=== PATIENT | female | born 1985 | race Caucasian/White ===

== ENCOUNTER 2017-09-24 09:39 | Emergency (ER) | payer OTHER ==
[~2017-09-24] VITALS: Ht 172.7 cm; Wt 77.0 kg
[~2017-09-24 09:39] MED LIST: DOXY100C2 PO; FERR325T18 PO; FLUT1AER INH; LEVA0.63 NEB; METR250T PO; MONT10TA6 PO; OMEP-110 PO; SUCR1ORA5 PO; ZOLP12.54 PO
[2017-09-24] MEDS ORDERED: LEVA15HF4 INH (10:00)
[2017-09-24] MEDS ORDERED: SODIUM CHLORIDE 0.9% 1,000ML IVBOLUS ONE (10:30)
[2017-09-24] MEDS ORDERED: SODIUM CHLORIDE FLUSH 10ML SYR IVF ONE (10:30)
[2017-09-24] MEDS ORDERED: ONDANSETRON 2MG/ML, 2ML ONE (10:44)
[2017-09-24] MEDS ORDERED: FAMOTIDINE 20 MG/2 ML ONE (10:44)
[2017-09-24] MEDS ORDERED: MORPHINE SULFATE 4 MG/ML, 1ML ONE (10:44)
[2017-09-24] MEDS ORDERED: MORPHINE SULFATE 4 MG/ML, 1ML IVPush PRN (11:00)
[2017-09-24] MEDS ORDERED: FAMOTIDINE 20 MG/2 ML IVP ONE (11:00)
[2017-09-24] MEDS ORDERED: ONDANSETRON 2MG/ML, 2ML IVPush ONE (11:00)
[2017-09-24 11:02] LABS: ALANINE AMINOTRANSFERASE 18 U/L (12-78); ALBUMIN 3.6 g/dL (3.4-5.0); ANION GAP 9 mmol/L (5-15); CALCIUM 8.5 mg/dL (8.5-10.1); CHLORIDE 113 mmol/L (98-107); CREATININE 0.67 mg/dL (0.55-1.02)
[2017-09-24 11:04] LABS: BASOPHILS # (AUTO) 0.04 x10^3/uL (0-0.1); BASOPHILS % (AUTO) 1 % (0-1); EOSINOPHILS # (AUTO) 0.13 x10^3/uL (0-0.4); EOSINOPHILS % (AUTO) 2 % (1-7); LYMPHOCYTES # (AUTO) 2.12 x10^3/uL (1-3.4); LYMPHOCYTES % (AUTO) 34 % (22-44); MD SCAN; MEAN CORPUSCULAR HEMOGLOBIN 26.1 pg (27.0-34.8); MEAN CORPUSCULAR HGB CONC 32.9 g/dL (32.4-35.8); MEAN CORPUSCULAR VOLUME 79.2 fL (80-100); MEAN PLATELET VOLUME 11.2 fL (7.4-10.4); MONOCYTES # (AUTO) 0.21 x10^3/uL (0.2-0.8); MONOCYTES % (AUTO) 3 % (2-9); NEUTROPHILS # (AUTO) 3.69 x10^3/uL (1.8-6.8); NEUTROPHILS % (AUTO) 60 % (42-75); PLATELET COUNT 268 x10^3/uL (130-400); RED BLOOD COUNT 4.72 x10^6/uL (3.82-5.3); RED CELL DISTRIBUTION WIDTH 22.3 % (9.6-15.2)
[2017-09-24 11:06] LABS: ALKALINE PHOSPHATASE 46 U/L (45-117); BILIRUBIN,TOTAL 0.5 mg/dL (0.2-1.0); TOTAL PROTEIN 7.3 g/dL (6.4-8.2)
[2017-09-24] MEDS ORDERED: MAALOX/HYOSCYAMINE/LIDOCAINE 45 ML BTL ONE (11:15)
[2017-09-24] MEDS ORDERED: MAALOX/HYOSCYAMINE/LIDOCAINE 45 ML BTL PO ONE (12:00)
[2017-09-24 12:12] VITALS: BP 142/76
== END 2017-09-24 14:28 | disposition home or self-care (01) ==
LOC: ED 12:20
DX: K44.9 Diaphragmatic hernia without obstruction or gangrene (principal); R13.10 Dysphagia, unspecified; R50.9 Fever, unspecified
CPT/HCPCS: 36415; 74021; 80053; 83605; 83690; 84703; 85025; 96361; 96374; 96375; 99285; J2405; J7030; S0028

== ENCOUNTER 2017-09-26 09:21 | Observation (INO) | payer OTHER ==
[2017-09-21 14:31] VITALS: BP 136/92
[~2017-09-26] VITALS: Ht 172.7 cm; Wt 81.3 kg
[~2017-09-26 09:21] MED LIST changes: +BUPIVACAINE/PF-EPI 0.5% 1:200K ONE; +LEVA15HF4 INH
[2017-09-26] MEDS ORDERED: LACTATED RINGERS 1,000 ML IV SCH (10:14)
[2017-09-26] MEDS ORDERED: OMEP-110 PO (10:19)
[2017-09-26 10:24] LABS: HCG UR SG 1.016 (1.003-1.030)
[2017-09-26] MEDS ORDERED: PROPOFOL 10 MG/ML, 20ML ONE (10:28)
[2017-09-26] MEDS ORDERED: SUCCINYLCHOLINE 20 MG/ML, 10ML ONE (10:28)
[2017-09-26] MEDS ORDERED: ROCURONIUM 10MG/ML,5ML ONE (10:28)
[2017-09-26] MEDS ORDERED: DEXAMETHASONE 4 MG/ML, 1ML ONE (10:28)
[2017-09-26] MEDS ORDERED: ONDANSETRON 2MG/ML, 2ML ONE (10:28)
[2017-09-26] MEDS ORDERED: CEFAZOLIN 1,000 MG ONE (10:28)
[2017-09-26] MEDS ORDERED: GABAPENTIN 300 MG CAPSULE PO ONE (10:30)
[2017-09-26] MEDS ORDERED: ACETAMINOPHEN 500 MG TABLET PO ONE (10:30)
[2017-09-26] MEDS ORDERED: SCOPOLAMINE PATCH, 1.5MG PATCH.TD72 TD ONE (10:30)
[2017-09-26] MEDS ORDERED: FENTANYL PF 250 MCG/5ML ONE (11:05)
[2017-09-26] MEDS ORDERED: MIDAZOLAM 1 MG/ML, 2ML ONE (11:05)
[2017-09-26] MEDS ORDERED: METOCLOPRAMIDE 5 MG/ML, 2ML IV PRN (12:30)
[2017-09-26] MEDS ORDERED: MEPERIDINE/PF 25MG/0.5ML IVPush PRN (12:30)
[2017-09-26] MEDS ORDERED: hydrALAzine 20 MG/ML, 1ML IV PRN (12:30)
[2017-09-26] MEDS ORDERED: LABETALOL 5MG/ML, 20ML IV PRN (12:30)
[2017-09-26] MEDS ORDERED: ONDANSETRON 2MG/ML, 2ML IVPush PRN ×2 (12:30→13:30)
[2017-09-26] MEDS ORDERED: ALBUTEROL SULFATE 2.5 MG/3 ML NPPB PRN (12:30)
[2017-09-26] MEDS ORDERED: KETOROLAC 30 MG/1 ML IV PRN ×2 (12:30→13:30)
[2017-09-26] MEDS ORDERED: FENTANYL PF 100 MCG/2ML IV PRN (12:30)
[2017-09-26] MEDS ORDERED: OXYcodone 5 MG/5 ML ORAL.SOL UDC PO PRN (12:30)
[2017-09-26] MEDS: LACTATED RINGERS 1,000 ML IV SCH ×2 (13:13→21:13)
[2017-09-26] MEDS ORDERED: PROMETHAZINE 25 MG/ML, 1ML ONE (13:18)
[2017-09-26] MEDS: HYDROmorphone 1 MG/ML, 1ML IV PRN ×4 (13:20→13:50)
[2017-09-26] MEDS: PROMETHAZINE 25 MG/ML, 1ML IV PRN ×2 (13:20→13:27)
[2017-09-26] MEDS ORDERED: HYDROmorphone 2 MG/ML, 1ML ONE (13:21)
[2017-09-26] MEDS ORDERED: KETOROLAC 30 MG/1 ML ONE (13:21)
[2017-09-26] MEDS ORDERED: XOPENEX INH SCH (13:30)
[2017-09-26] MEDS ORDERED: PROMETHAZINE 12.5 MG SUPP PR PRN (13:30)
[2017-09-26] MEDS ORDERED: PROMETHAZINE 25 MG/ML, 1ML IM PRN (13:30)
[2017-09-26] MEDS ORDERED: DIPHENHYDRAMINE 50 MG/ML, 1ML IV PRN (13:30)
[2017-09-26] MEDS ORDERED: LORazepam 2 MG/ML, 1ML IV PRN (13:30)
[2017-09-26] MEDS ORDERED: morphine SULFATE 10 MG/ML, 1ML IV PRN (13:30)
[2017-09-26] MEDS ORDERED: ENALAPRILAT 1.25 MG/ML, 2ML IV PRN (13:30)
[2017-09-26] MEDS: FAMOTIDINE 20 MG/2 ML IV SCH (13:30)
[2017-09-26] MEDS ORDERED: LORazepam 2 MG/ML, 1ML ONE (13:45)
[2017-09-26] MEDS ORDERED: FENTANYL PF 100 MCG/2ML ONE (13:45)
[2017-09-26] MEDS ORDERED: ENALAPRILAT 1.25 MG/ML, 2ML ONE (13:48)
[2017-09-26] MEDS ORDERED: LABETALOL 5MG/ML, 20ML ONE (13:48)
[2017-09-26] MEDS ORDERED: OXYcodone 5 MG/5 ML ORAL.SOL UDC ONE (14:09)
[2017-09-26] MEDS ORDERED: MEPERIDINE/PF 50 MG/ML ONE (14:37)
[2017-09-26] MEDS ORDERED: DIAZEPAM 5 MG TABLET ONE (15:25)
[2017-09-26] MEDS ORDERED: DIAZEPAM 5 MG TABLET PO ONE (15:30)
[2017-09-26] MEDS: HYDROcodone/APAP 7.5-325MG/15ML UDC PO PRN ×2 (16:46→20:46)
[2017-09-26] MEDS: CEFAZOLIN PMX 2GM/50ML 50 ML IVPB SCH (19:11)
[2017-09-26] MEDS ORDERED: ZOLPIDEM 10MG TABLET PO PRN (19:30)
[2017-09-26 19:31] VITALS: BP 149/85
[2017-09-26] MEDS ORDERED: MONTELUKAST 10 MG TABLET PO SCH (21:00)
[2017-09-26 23:55] VITALS: BP 114/70
[2017-09-27] MEDS: HYDROcodone/APAP 7.5-325MG/15ML UDC PO PRN ×3 (01:29→09:44)
[2017-09-27] MEDS: FAMOTIDINE 20 MG/2 ML IV SCH (01:31)
[2017-09-27] MEDS: CEFAZOLIN PMX 2GM/50ML 50 ML IVPB SCH (03:07)
[2017-09-27 04:13] VITALS: BP 143/82
[2017-09-27] MEDS: LACTATED RINGERS 1,000 ML IV SCH (05:13)
[2017-09-27 06:44] VITALS: BP 146/75
[2017-09-27] MEDS ORDERED: FLUTICASONE/VILANTEROL 100-25MCG/INH INH SCH (09:00)
[2017-09-27] MEDS ORDERED: ENOXAPARIN 40 MG/0.4 ML SQ SCH (09:00)
[2017-09-27] MEDS ORDERED: HYDR-3241 PO (10:06)
[2017-09-27] MEDS ORDERED: DIAZ5TAB PO (10:09)
== END 2017-09-27 10:26 | disposition home or self-care (01) ==
LOC: OUT 09:21 → 4NOR 16:44 → DCLOUNGE 09-27 10:11
PROVIDERS: ADMIT Thoracic Surgery (Cardiothoracic Vascular Surgery); ATTEND Thoracic Surgery (Cardiothoracic Vascular Surgery)
DX: K44.9 Diaphragmatic hernia without obstruction or gangrene (principal); K92.2 Gastrointestinal hemorrhage, unspecified
CPT/HCPCS: 43282; 81025; 96365; 96375; C1781; G0378; J0330; J0690; J1100; J1170; J1885; J2060; J2175; J2250; J2405; J2550; J2704; J3010; S0028